=== PATIENT | male | born 1985 | race Caucasian/White ===

== ENCOUNTER 2022-04-26 12:26 | Outpatient (REF) | payer SELFPAY ==
[2022-04-27 16:04] LABS: Appearance Normal; Container Type 50 mL Conical; Grade 2.5 (>=2.5); Motile/Ejaculate 30.8 x10(6) (>=9.0); Motile/mL 7.7 x10(6) (>=6.0); Motility 39 % (>=40); Sperm/mL 19.8 x10(6) (>=15.0); Study Type Semen
[2022-04-28 16:33] LABS: Acrosom Defect 29.5 %; Germ Cells/mL 1.19 x10(6) (<4.00); Midpiece Defect 3.5 %; Strict Morph NL 3.5 % (>=4.0); Tail Defect 25.5 %
== END 2022-04-26 12:27 | disposition home or self-care (01) ==
LOC: LBO 12:26
PROVIDERS: Visit Provider Obstetrics & Gynecology
DX: Z31.41 Encounter for fertility testing (principal)
CPT/HCPCS: 89240; 89310